=== PATIENT | male | born 1965 | race Caucasian/White ===

== ENCOUNTER → 2019-04-07 | Outpatient (CLI) | payer BC ==
--- NOTE | 2019-04-07 15:36 | PCVCIMAG ---
APPROVED REPORT Study performed: 04/07/2019 13:00:25 EXAM: Comprehensive 2D, Doppler, and color-flow Echocardiogram Patient Location: Echo lab Status: routine BSA: 2.29 HR: 50 bpmBP: 128/70 mmHg Rhythm: Bradycardia Other Information Study Quality: Adequate Indications Bradycardia Dyspnea on Exertion Nausea Lightheadedness 2D Dimensions IVSd: 10.39 (7-11mm)LVOT Diam: 24.00 (18-24mm) LVDd: 59.32 mm PWd: 9.83 (7-11mm)Ascending Ao: 38.09 (22-36mm) LVDs: 39.93 (25-40mm) Left Atrium: 42.92 (27-40mm) Aortic Root: 34.92 mm LV Single Plane 4CH: 66.64 % LV Single Plane 2CH: 70.55 % Biplane EF: 69.1 % Volumes Left Atrial Volume (Systole) Single Plane 4CH: 55.81 mLSingle Plane 2CH: 75.74 mL LA ESV Index: 33.00 mL/m2 Aortic Valve AoV Peak To.: 2.08 m/s AO Peak Gr.: 17.33 mmHg AI Vmax: 4.51 m/s AI Conway: 2.94 m/s2 AI PHT: 445.69 ms Mitral Valve E/A Ratio: 1.9 MV Decel. Time: 254.83 ms MV E Max To.: 0.89 m/s MV A To.: 0.46 m/s TDI E/Lateral E': 9.89E/Medial E': 11.13 Medial E' To.: 0.08 m/s Lateral E' To.: 0.09 m/s Pulmonary Valve PV Peak To.: 0.86 m/sPV Peak Gr.: 2.96 mmHg Pulmonary Vein P Vein S: 0.70 m/sP Vein A: 0.45 m/s P Vein D: 0.38 m/sP Vein A Dur.: 121.1 msec P Vein S/D Ratio: 1.84 Tricuspid Valve TR Peak To.: 3.09 m/sRAP Estimate: 7.00 mmHg TR Peak Gr.: 38.25 mmHg PA Pressure: 45.00 mmHg Left Ventricle Left ventricle is mildly dilated. There is normal LV segmental wall motion. There is normal left ventricular wall thickness. Left ventricular systolic function is normal. The left ventricular ejection fraction is within the normal range. LVEF is 60-65%. The left ventricular diastolic function is normal. Right Ventricle The right ventricle is normal size. The right ventricular systolic function is normal. Atria The left atrium size is normal. The right atrium size is normal. Aortic Valve Aortic valve leaflets appear to prolapse. The Aortic valve is sclerotic. Moderate to severe eccentric aortic regurgitation jet. There is no aortic valvular stenosis. Mitral Valve The mitral valve is normal in structure. Mild mitral regurgitation. No evidence of mitral valve stenosis. Tricuspid Valve The tricuspid valve is normal in structure. Mild tricuspid regurgitation. Pulmonary artery pressure is 45 mmHg. Pulmonic Valve The pulmonary valve is normal in structure. Trace pulmonic regurgitation. Great Vessels The aortic root is normal in size. IVC is normal in size and collapses >50% with inspiration. Pericardium There is no pericardial effusion. <Conclusion> Left ventricle is mildly dilated. LVEF is 60-65%. Aortic valve leaflets appear to prolapse. The Aortic valve is sclerotic. Moderate to severe eccentric aortic regurgitation jet. The mitral valve is normal in structure. Mild mitral regurgitation. The tricuspid valve is normal in structure. Mild tricuspid regurgitation. Pulmonary artery pressure is 45 mmHg. The pulmonary valve is normal in structure. Trace pulmonic regurgitation. There is no pericardial effusion.
== END | disposition home or self-care (01) ==
LOC: PCVCIMAG 12:55
PROVIDERS: ATTEND Internal Medicine
DX: I08.3 Combined rheumatic disorders of mitral, aortic and tricuspid valves (principal)
CPT/HCPCS: 93306

== ENCOUNTER → 2019-04-14 | Outpatient (CLI) | payer BC ==
--- NOTE | 2019-04-15 13:21 | PCVCIMAG ---
APPROVED REPORT Imaging Protocol: Rest Tc-99m/Stress Tc-99m 1 day Study performed: 04/14/2019 10:25:12 Indication: Chest pain, Dyspnea, Bradycardia, Dizzy Patient Location: Out-Patient Stress Nurse: Korin Claire RN [place] Tech:Genie Tang [facility] Ht: 6 ft 0 in Wt: 237 lbs BSA: 2.29 m2 HR: 55 bpm BP: 140/63 mmHg BMI: 32.1 Rhythm: Sinus Bradycardia Medical History Medical History: Current Smoker Medications: No Cardiac Meds Allergies: No known drug allergies Cardiac Risk Factors: Age Pretest Chest Pain Characteristics: No chest pain Exercise History: Physically active Resting Data Rest SPECT myocardial perfusion imaging was performed in supine position 45 minutes following the intravenous injection of 10.5 mCi of Tc-99m Sestamibi. Time of rest injection: 0945 Date: 04/14/2019 Administration Route: IV Administration Site: Right AC Exercise Stress At peak stress, the patient was injected intravenously with 35.8mCi of Tc-99m Sestamibi. Time of stress injection: 1100 Date: 04/14/2019 Administration Route: IV Administration Site: Right AC Patient continued to exercise for 1 minute(s). Gated Stress SPECT was performed 30 minutes after stress injection. The images were gated to evaluate regional wall motion and calculate left ventricular ejection fraction. Stress Test Details Stress Test: Exercise stress testing was performed using a Yadiel protocol. HRMax Heart Rate (APMHR): 165 bpm Resting HR: 55 bpmTarget HR (85% APMHR): 140 bpm Max HR Achieved: 155 bpm % of APMHR: 93 Recovery HR: 66 bpm BP Resting BP: 140/63 mmHg Max BP: 164/78 mmHg Recovery BP: 139/63 mmHg ECG Resting ECG: Sinus Bradycardia Stress ECG: Sinus Tachycardia, nonspecific ST-T abnormalities Maximum ST Deviation: 1.65 mm Arrhythmia: APC's Recovery ECG: Sinus Rhythm Clinical Reason for Termination: Maximal effort Stress Symptoms: Dyspnea, Fatigue Exercise duration: 12 min 00 sec Exercise capacity: 13.4 METs Overall Exercise Capacity for Age: Good Angina Score: None Symptoms resolved during recovery. Stress ECG Conclusion 1. Electrocardiographically negative for ischemia although J-point depression was noted with upsloping ST segments did not refer criteria for ischemia 2. Subjectively equivocal with development of dyspnea and fatigue but no chest discomfort Almeida Treadmill Score is 3.8 which is Moderate risk. Perfusion There is a medium area of moderately reduced uptake in the mid and apical segment of the inferior wall which is seen on the stress images as well as the resting images. This area thickens and moves normally and is most consistent with attenuation artifact. Nuclear Conclusion ECG Findings: negative for ischemia Clinical Findings: equivocal Nuclear Findings: negative for ischemia Exercise Capacity: normal Left Ventricular Function: normal 1. Low risk study 2. Post exercise left ventricular ejection fraction 65% without wall motion abnormalities Interpreted by: Margaret Randall MD Electronically Approved: 04/15/2019 13:21:22 <Conclusion> 1. Electrocardiographically negative for ischemia although J-point depression was noted with upsloping ST segments did not refer criteria for ischemia 2. Subjectively equivocal with development of dyspnea and fatigue but no chest discomfort
== END | disposition home or self-care (01) ==
LOC: PCVCIMAG 09:23
PROVIDERS: ATTEND Internal Medicine
DX: R00.1 Bradycardia, unspecified (principal); R07.9 Chest pain, unspecified; R06.00 Dyspnea, unspecified; R42 Dizziness and giddiness
CPT/HCPCS: 78452; 93017; A9500